=== PATIENT | female | born 2000 | race Caucasian/White ===

== ENCOUNTER 2018-05-28 17:27 | Emergency (ER) | payer BC, OTHER ==
[~2018-05-28] VITALS: Ht 154.9 cm; Wt 49.9 kg
[2018-05-28 17:44] VITALS: BP_SYST 127
[2018-05-28 19:12] LABS: CALCIUM 8.9 mg/dL (8.4-11.0); CREATININE 0.7 mg/dL (0.55-1.30); POTASSIUM 3.9 mmol/L (3.5-5.1)
[2018-05-28 19:17] LABS: ALBUMIN 3.7 g/dL (3.4-4.8); BASOPHILS % (AUTO) 0.5 % (0.0-2.0); EOSINOPHILS % (AUTO) 0.2 % (0.0-4.0); HEMATOCRIT 41.5 % (36-48); HEMOGLOBIN 13.8 g/dL (12.0-16.0); LYMPHOCYTES # (AUTO) 0.3 K/uL (1.0-5.5); LYMPHOCYTES % (AUTO) 3.6 % (20.5-51.5); MEAN CORPUSCULAR HEMOGLOBIN 29 pg (27-31); MEAN CORPUSCULAR HGB CONC 33 % (32-36); MEAN CORPUSCULAR VOLUME 89 fL (79.0-98.0); MONOCYTES # (AUTO) 0.5 K/uL (0.0-1.0); MONOCYTES % (AUTO) 5.6 % (1.7-9.3); NEUTROPHILS # (AUTO) 8.2 K/uL (1.8-7.7); NEUTROPHILS % (AUTO) 90.1 % (40.0-70.0); PLATELET COUNT (AUTO) 236 K/uL (130-430); RED BLOOD CELL COUNT(AUTO) 4.68 MIL/uL (4.2-6.2); RED CELL DISTRIBUTION WIDTH 11.6 % (9.0-15.0); TOTAL BILIRUBIN 1.1 mg/dL (0.0-1.0)
[2018-05-28] MEDS: ONDANSETRON HCL 4 MG/2 ML VIAL IVP ONE (19:40)
[2018-05-28] MEDS: NACL 0.9% 1,000 ML IV ONE (19:44)
[2018-05-28 20:00] VITALS: BP_SYST 127
== END 2018-05-28 20:00 | disposition home or self-care (01) ==
LOC: SED 17:27
DX: K52.9 Noninfective gastroenteritis and colitis, unspecified (principal); R03.0 Elevated blood-pressure reading, without diagnosis of hypertension; J45.909 Unspecified asthma, uncomplicated
CPT/HCPCS: 36415; 74018; 80053; 81025; 85025; 96374; 99284; J2405

== ENCOUNTER 2020-01-19 12:07 | Emergency (ER) | payer BC ==
[~2020-01-19] VITALS: Ht 157.5 cm; Wt 52.2 kg
[2020-01-19 12:07] VITALS: BP_SYST 134
--- NOTE | 2020-01-19 12:07 | NUR ---
Patient to ER tent for evaluation. Side rails up.
--- NOTE | 2020-01-19 12:08 | NUR ---
Patient came from home for evaluation of chest pain since 0800 today. Patient reports that she was tested for COVID-19 on and is waiting for results, today she experienced sharp chest pain.
--- NOTE | 2020-01-19 12:15 | NUR ---
ER in tent examining patient.
[2020-01-19 12:43] VITALS: BP_SYST 134
--- NOTE | 2020-01-19 12:43 | NUR ---
Patient given written and verbal discharge instructions and verbalizes understanding. ER MD discussed with patient the results and treatment provided. Patient in stable condition. ID arm band removed. Rx of naproxen given. Patient educated on pain management and to follow up with PMD. Pain Scale 5/10, MD is aware. Opportunity for questions provided and answered. Medication side effect fact sheet provided.
== END 2020-01-19 12:43 | disposition home or self-care (01) ==
LOC: SED 12:07
DX: R07.81 Pleurodynia (principal); J45.909 Unspecified asthma, uncomplicated
CPT/HCPCS: 93005; 99283